=== PATIENT | male | born 1960 | race Caucasian/White ===

== ENCOUNTER 2018-09-01 11:32 | Inpatient (IN) ==
[2018-09-01] MEDS ORDERED: 0.9 % Sodium Chloride 1,000 ML IVC ONE (11:55)
[2018-09-01 12:07] LABS: Basophils # 0.1 K/mcL (0.0-0.2); Basophils % 0.7 %; Eosinophils # 0.1 K/mcL (0.0-0.6); Eosinophils % 1.3 %; Hemoglobin 14.4 g/dL (12.9-16.9); Immature Granulocytes % 0.4 % (0-4); Lymphocytes # 2.1 K/mcL (0.6-4.6); Lymphocytes % 31.1 %; Mean Corpuscular HGB Conc 33.5 g/dL (31.6-35.5); Mean Corpuscular Hemoglobin 31.4 pg (28.0-33.3); Mean Corpuscular Volume 93.9 fL (83.0-100.0); Mean Platelet Volume 10.1 fL (9.4-12.4); Monocytes # 0.8 K/mcL (0.0-1.3); Monocytes % 11.1 %; Neutrophils # 3.8 K/mcL (1.6-8.9); Platelet Count 263 K/mcL (140-400); Red Blood Count 4.58 M/mcL (4.19-5.50); Red Cell Distribution Width 12.5 % (11.5-14.5); Segmented Neutrophils % 55.4 %
[2018-09-01 12:11] LABS: INR 1.2; Prothrombin Time 13.3 Seconds (9.4-12.1)
[2018-09-01 12:14] LABS: Activated Partial Thrombo Time 28.5 Seconds (26.0-36.0)
--- NOTE | 2018-09-01 12:22 | Emergency Department Note ---
Disposition Clinical Impression: New onset atrial fibrillation Disposition: Admitted As Inpatient Condition: Good Forms: ED Satisfaction Letter General Adult HPI - General Chief complaint: ED Arrhythmia/Palpitations Stated complaint: "afib" Time Seen by Provider: 09/01/18 11:38 Source: patient Mode of arrival: ambulatory Limitations: no limitations Nursing Notes Reviewed: Yes Vital Signs Reviewed: Yes - History of Present Illness HPI Narrative: Patient presents to the emergency department today for evaluation of palpitations and possible A. fib. Patient has been undergoing evaluation for possible A. fib for the last year. Intermittent episodes of palpitations. Patient does not have any significant chest pain but does have associated shortness breath with exertion. Patient states that he has a history of hepatitis C found with our new blood work but continues to be followed. Has not had any recent elevation of his liver enzymes and does not have any jaundice. Patient does drink one cup of coffee a day but has no other caffeine use or stimulant use. Patient developed palpitations that are intermittent and typically only last a short amount of time before resolving. Patient was recently placed on a Holter monitor. Patient states that he noticed the palpitations proximally 30 minutes prior to arrival. Palpitations include heart rate going up into the 180s and 190s. QRS complex is narrow and is a regular consistent with atrial fibrillation. Patient does have depressions that are likely related to the overall rate. Patient on exam is comfortable and in no acute distress despite his significant elevated heart rate. Blood pressure is 130 systolic. The patient will receive IV fluids as well as Cardizem. The patient will be admitted for further evaluation of new onset A. fib. Pain Scale: 0 - Related Data Home Medications Medication Instructions Recorded Confirmed Aspirin [Lo-Dose Aspirin EC] 81 mg PO DAILY 09/01/18 09/01/18 Lisinopril [Zestril] 5 mg PO DAILY 09/01/18 09/01/18 Allergies Allergy/AdvReac Type Severity Reaction Status Date / Time No Known Allergies Allergy Verified 09/01/18 12:12 All systems ED: reviewed and negative except as stated. Review of Systems: As Per HPI Constitutional: Denies: fever, chills Cardiovascular: Reports: palpitations, dyspnea on exertion. Denies: chest pain Respiratory: Denies: cough, dyspnea Gastrointestinal: Denies: abdominal pain, nausea Genitourinary: Denies: urgency, dysuria Musculoskeletal: Denies: back pain Integumentary: Denies: rash, abrasion Neurological: Denies: headache Endocrine: Denies: fatigue Past Medical History - Past Medical History Medical history: Reports: atrial fibrillation, hepatitis, other Psychiatric history: Reports: no psych history - Social History Smoking Status: Never smoker Smokeless Tobacco Status: No Alcohol use: Reports: none Drug use: Reports: none Physical Exam General: Well appearing, nontoxic, no acute distress Head: Normocephalic Atraumatic Eyes: PERRL, EOMI ENT: Airway patent, no stridor Neck: supple Chest: Lungs clear to auscultation bilateral Cardiac: Irregular rate and rhythm Abdomen: soft, nontender, nondistended; no guarding, rebound, or tenderness to percussion Musculoskeletal: Calves symmetric, nontender, no palpable cord Skin: No rash, normal skin tone Neuro: Alert and Oriented to person, place, and time; No focal deficit, - General General appearance: alert Course - Reevaluation(s) Reevaluation #1: Patient has no complete at this time. Heart rate is improved into the 1 teens. Patient received bolus as well as Cardizem drip at 10. Patient's Cardizem drip will be increased to 15. He will continue to be monitored. Patient admitted to the hospitalist service. - Consultations Consultation #1: Discussed the case with the hospitalist. Patient accepted for admission. Vital Signs Temperature 98.8 F 09/01/18 11:37 Pulse Rate 97 09/01/18 11:37 Respiratory Rate 18 09/01/18 11:37 Blood Pressure 124/90 09/01/18 11:37 O2 Sat by Pulse Oximetry 98 09/01/18 11:37 Temperature 98.8 F 09/01/18 11:54 Pulse Rate 129 09/01/18 13:21 Respiratory Rate 17 09/01/18 13:21 Blood Pressure 106/75 09/01/18 13:21 O2 Sat by Pulse Oximetry 97 09/01/18 13:21 Oxygen Delivery Oxygen Delivery Room Air Medical Decision Making - Medical Records Medical records reviewed: Yes I reviewed the patient's medical records. - Lab Data Lab results reviewed: Yes I reviewed the patient's lab results. Result diagrams: 09/01/18 11:49 09/01/18 11:49 Lab Results 09/01/18 09/01/18 09/01/18 Range/Units 11:49 11:49 11:49 WBC (4.3-11.1) K/mcL RBC (4.19-5.50) M/mcL Hgb (12.9-16.9) g/dL Hct (37.5-50.1) % MCV (83.0-100.0) fL MCH (28.0-33.3) pg MCHC (31.6-35.5) g/dL RDW (11.5-14.5) % Plt Count (140-400) K/mcL MPV (9.4-12.4) fL Immature Gran % (0-4) % Seg Neutrophils % % Lymphocytes % % Monocytes % % Eosinophils % % Basophils % % Neutrophils # (1.6-8.9) K/mcL Lymphocytes # (0.6-4.6) K/mcL Monocytes # (0.0-1.3) K/mcL Eosinophils # (0.0-0.6) K/mcL Basophils # (0.0-0.2) K/mcL PT 13.3 H (9.4-12.1) Seconds INR 1.2 APTT 28.5 (26.0-36.0) Seconds Sodium (136-145) mEq/L Potassium (3.5-5.1) mEq/L Chloride (98-107) mEq/L Carbon Dioxide (23-29) mEq/L BUN (6-20) mg/dL Creatinine (0.70-1.30) mg/dL Est GFR ( Amer) (> 60) Est GFR (Non-Af Amer) (> 60) BUN/Creatinine Ratio (6-26) Glucose (70-105) mg/dL Calculated Osmolality (280-300) Calcium (8.6-10.3) mg/dL Magnesium 2.0 (1.6-2.6) mg/dL Troponin I (< 0.04) ng/mL B-Natriuretic Peptide 50 (Less than 100) pg/mL TSH 1.221 (0.340-5.600) mcIU/mL 09/01/18 09/01/18 Range/Units 11:49 11:49 WBC 6.8 (4.3-11.1) K/mcL RBC 4.58 (4.19-5.50) M/mcL Hgb 14.4 (12.9-16.9) g/dL Hct 43.0 (37.5-50.1) % MCV 93.9 (83.0-100.0) fL MCH 31.4 (28.0-33.3) pg MCHC 33.5 (31.6-35.5) g/dL RDW 12.5 (11.5-14.5) % Plt Count 263 (140-400) K/mcL MPV 10.1 (9.4-12.4) fL Immature Gran % 0.4 (0-4) % Seg Neutrophils % 55.4 % Lymphocytes % 31.1 % Monocytes % 11.1 % Eosinophils % 1.3 % Basophils % 0.7 % Neutrophils # 3.8 (1.6-8.9) K/mcL Lymphocytes # 2.1 (0.6-4.6) K/mcL Monocytes # 0.8 (0.0-1.3) K/mcL Eosinophils # 0.1 (0.0-0.6) K/mcL Basophils # 0.1 (0.0-0.2) K/mcL PT (9.4-12.1) Seconds INR APTT (26.0-36.0) Seconds Sodium 139 (136-145) mEq/L Potassium 4.0 (3.5-5.1) mEq/L Chloride 105 (98-107) mEq/L Carbon Dioxide 26 (23-29) mEq/L BUN 13 (6-20) mg/dL Creatinine 0.93 (0.70-1.30) mg/dL Est GFR ( Amer) > 60 (> 60) Est GFR (Non-Af Amer) > 60 (> 60) BUN/Creatinine Ratio 14 (6-26) Glucose 98 (70-105) mg/dL Calculated Osmolality 288 (280-300) Calcium 10.0 (8.6-10.3) mg/dL Magnesium (1.6-2.6) mg/dL Troponin I < 0.03 (< 0.04) ng/mL B-Natriuretic Peptide (Less than 100) pg/mL TSH (0.340-5.600) mcIU/mL - Radiology Data Radiology results reviewed: Yes I reviewed the patient's radiology results. - EKG Data EKG #1 EKG attestation: Yes I reviewed and interpreted this EKG. EKG results narrative: EKG shows atrial fibrillation with a rate of 167. Patient QRS 87. QTC 455. Patient has no significant elevations but does have mild depressions throughout the precordial leads likely related to rate.
[2018-09-01 12:34] LABS: BUN/Creatinine Ratio 14 (6-26); Blood Urea Nitrogen 13 mg/dL (6-20); Carbon Dioxide 26 mEq/L (23-29); Chloride 105 mEq/L (98-107); Glucose 98 mg/dL (70-105); Osmolality,Calculated 288 (280-300); Sodium 139 mEq/L (136-145); eGFR For Non-African Americans > 60 (> 60)
[2018-09-01 12:38] LABS: Thyroid Stimulating Hormone 1.221 mcIU/mL (0.340-5.600)
[2018-09-01 12:52] LABS: Troponin I < 0.03 ng/mL (< 0.04)
[2018-09-01] MEDS ORDERED: Naloxone 0.4 MG/ML INJ IVP PRN (14:03)
[2018-09-01] MEDS ORDERED: *HR* Metoprolol 5 MG/5 ML VIAL IVP ONE (14:08)
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
[2018-09-01] MEDS ORDERED: *HR* Metoprolol 5 MG/5 ML VIAL IVP PRN (16:40)
[2018-09-02 05:30] LABS: Basophils # 0.1 K/mcL (0.0-0.2); Basophils % 0.7 %; Eosinophils # 0.2 K/mcL (0.0-0.6); Eosinophils % 2.5 %; Hematocrit 41.4 % (37.5-50.1); Hemoglobin 13.8 g/dL (12.9-16.9); Immature Granulocytes % 0.1 % (0-4); Mean Corpuscular HGB Conc 33.3 g/dL (31.6-35.5); Mean Corpuscular Hemoglobin 31.4 pg (28.0-33.3); Mean Corpuscular Volume 94.1 fL (83.0-100.0); Mean Platelet Volume 9.9 fL (9.4-12.4); Monocytes # 0.7 K/mcL (0.0-1.3); Monocytes % 10.1 %; Neutrophils # 2.9 K/mcL (1.6-8.9); Platelet Count 257 K/mcL (140-400); Red Cell Distribution Width 12.9 % (11.5-14.5); Segmented Neutrophils % 42.6 %
[2018-09-02 05:51] LABS: BUN/Creatinine Ratio 19 (6-26); Blood Urea Nitrogen 13 mg/dL (6-20); Carbon Dioxide 25 mEq/L (23-29); Chloride 106 mEq/L (98-107); Glucose 96 mg/dL (70-105); Osmolality,Calculated 284 (280-300); Potassium 4.2 mEq/L (3.5-5.1); Sodium 137 mEq/L (136-145); eGFR For Non-African Americans > 60 (> 60)
[2018-09-02] MEDS ORDERED: Aspirin Enteric Coated 81 MG Tablet PO SCH (09:00)
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
[2018-09-02] MEDS ORDERED: Diltiazem CD (24hr) 120 MG CAPSULE PO SCH (09:30)
[2018-09-02 11:13] VITALS: BP 107/66
--- NOTE | 2018-09-02 14:30 | Discharge Summary ---
- NOTES TO OUTPATIENT PROVIDER Notes to Outpatient Provider: The patient wants to have follow-up with Dr. Aguilar , a wet silk hanger in [facility]) instead a local wet silk hanger here.. Date of Encounter: 09/02/18 Time of Encounter: 14:27 - Discharge Diagnosis (1) PAF (paroxysmal atrial fibrillation) Priority: Primary Status: Acute (2) HTN (hypertension) Priority: Secondary Status: Chronic Qualifiers: Hypertension type: essential hypertension Qualified Code(s): I10 - Essential (primary) hypertension (3) Hx of hepatitis C Priority: Secondary Status: Chronic Hospital course: HOSPITAL COURSE: The patient is a 58-year-old male. We admitted him after he had experienced an episode of atrial fibrillation. He had a feeling of heart palpitation, when wearing a Holter monitor. He was asked to come to emergency room for treatments. The patient was found to have A. fib with RVR. It was treated with IV Cardizem. Then, he was switched to Cardizem CD120 mg by mouth daily. Cardiology has been consulted. They recommended echocardiogram. The study shows ejection fraction of 60-65%. There is no structural abnormalities in that study. The patient cardioverted to normal sinus rhythm shortly after the admission. His calculated chads 2 score is only one-point. He will be on daily aspirin. CONDITION AT DISCHARGE: He feels good. Denies chest pain and difficulty breathingresting and walking. Skin: Free of rash and discoloration. Respiratory: Normal breath sounds with no crackles and wheezes bilaterally. CV: Heart is regular with no gallop or murmur. GI: Abdomen is flat and soft with no palpable mass or visceromegaly. Neuro exam: There is no focal deficits. Normal speech, swallowing and gait. SEE DISCHARGE ORDERS/MEDICATIONS.. The patient will make follow-up with Dr. Aguilar, cardiology is in [place], [place] by himself in the next couple weeks. Instead of lisinopril he will be taking Cardizem CD. It would be good for blood pressure control and for heart rate control (if he gets another episode of atrial fibrillation). Discharge discussed with: patient, nurse, social work - Time Spent with Patient Total time spent providing and/or coordinating discharge services: Greater than 30 minutes (35 minutes) - Discharge Medications Prescriptions: Diltiazem CD (24hr) [Cardizem CD] 120 mg PO DAILY #30 cap.er.24h Home Medications: Aspirin [Lo-Dose Aspirin EC] 81 mg PO DAILY 09/01/18 [History] Diltiazem CD (24hr) [Cardizem CD] 120 mg PO DAILY #30 cap.er.24h 09/02/18 [Rx] Allergies/Adverse Reactions: 3 Allergy/AdvReac Type Severity Reaction Status Date / Time No Known Allergies Allergy Verified 09/01/18 12:12 Date of admission: 09/01/18 13:41 Primary care physician: Philippe Gaines DO Consults: 09/01/18 16:35 Consult to Cardiology [CONS] Routine Comment: Consulting Provider: Cardiology Deirdre Reason for Consult: Need for inpatient ischemic evaluaton Call Completed: Yes Discharging clinician: Brayan Cai Anticipated date of discharge: 09/02/18 - Constitutional Vitals: Temp Pulse Resp BP Pulse Ox 98.3 F 63 18 107/66 96 09/02/18 11:13 09/02/18 11:13 09/02/18 11:13 09/02/18 11:13 09/02/18 11:13 General appearance: Present: A&O X 3, no acute distress, answers questions appropriately Exam: xx - Patient Status Disposition: Home, Self-Care Condition: Good Functional capacity at discharge: independent ambulation Overall status at discharge: patient is back to baseline - Discharge Instructions Instructions: Atrial Fibrillation (GEN) Follow Up With: Arthur Milner MD [Non-Partnered Physician] - (Please call the office once your home and make a hospital follow up for 5-7 days) - Diet and Activity Activity: resume usual activities as tolerated Diet: low fat, low cholesterol - VTE Reasons for not Prescribing Prophylaxis: Treatment not Indicated - Low risk for VTE Deep Vein Thrombosis/Pulmonary Embolism Present on Admission: No
--- NOTE | 2018-09-02 18:45 | Electrocardiograph Report ---
[place] [id number] Test Date: 2018-09-01 Pat Name: Will Fuentes Department: [id number] Room: 2A Gender: M [employer]: : 1960 Requested By: [id number] Order Number: [id number] Reading MD: Chavez Canchola Measurements Intervals [place] Rate: 167 P: AK: QRS: -2 QRSD: 87 T: 34 QT: 273 QTc: 455 Interpretive Statements Atrial fibrillation with rapid V-rate ST depression, probably rate related Electronically Signed On 09-02-2018 18:43:38 EDT by Chavez Canchola
== END 2018-09-02 15:02 | disposition home or self-care (01) | DRG 310 ==
LOC: EMEROOARM 11:32 → SUATTDRO 13:41 → 2ANU 13:41
PROVIDERS: ADMIT Internal Medicine; ATTEND Internal Medicine